=== PATIENT | female | born 2000 ===

== ENCOUNTER 2018-06-16 23:26 | Emergency (ER) | payer SELFPAY ==
[2018-06-17] MEDS ORDERED: TYLENOL PO ONE (00:55)
[2018-06-17 03:25] LABS: Bacteria,Urine 1+ /HPF (Negative); Bilirubin,Urine NEG (Negative); Blood,Urine NEG (Negative); Color,Urine Yellow (Yellow); Mucus,Urine FEW /HPF; Protein,Urine <15 mg/dL mg/dL (Negative); Urobilinogen,Urine < 2.0 mg/dL (<2.0)
[2018-06-17 03:26] LABS: HCG Qualitative,Urine Negative (Negative)
[2018-06-17] MEDS ORDERED: IBUPROFEN PO ONE (07:53)
--- NOTE | 2018-06-17 07:55 | Emergency Department Report ---
ED Fever HPI - General Chief Complaint: Fever Stated Complaint: BODYACHE/PAIN X 12HOURS Time Seen by Provider: 06/17/18 07:22 - History of Present Illness Initial Comments: This is a 18-year-old female presents to the ED complaining of fever that started yesterday, and had some generalized body aches that started this morning. Patient states sh Timing/Duration: yesterday Fever Severity/Quality: greater than 100.5 F Fever Therapy [employer]: none Associated Symptoms: cough (little."), muscle aches. denies: chest pain, confusion, nausea/vomiting, stiff neck, weakness ED Review of Systems ROS: Stated complaint: BODYACHE/PAIN X 12HOURS Other details as noted in HPI Comment: All other systems reviewed and negative ED Past Medical Hx - Past Medical History Previous Medical History?: No - Surgical History Past Surgical History?: No - Social History Smoking Status: Current Every Day Smoker Substance Use Type: None - Medications Home Medications: Home Medications Medication Instructions Recorded Confirmed Last Taken Type Amoxicillin/Potassium Clav 1 each PO BID #14 tablet 06/17/18 Unknown Rx [Augmentin 875-125 Tablet] Ibuprofen [Motrin 800 MG tab] 800 mg PO TID #30 tablet 06/17/18 Unknown Rx ED Physical Exam - General Limitations: No Limitations General appearance: alert, in no apparent distress - Head Head exam: Present: atraumatic, normocephalic - Eye Eye exam: Present: normal appearance - ENT ENT exam: Present: mucous membranes moist - Neck Neck exam: Present: normal inspection - Respiratory Respiratory exam: Present: normal lung sounds bilaterally. Absent: respiratory distress - Cardiovascular Cardiovascular Exam: Present: regular rate, normal rhythm. Absent: systolic murmur, diastolic murmur, rubs, gallop - GI/Abdominal GI/Abdominal exam: Present: soft, normal bowel sounds - Extremities Exam Extremities exam: Present: normal inspection - Back Exam Back exam: Present: normal inspection - Neurological Exam Neurological exam: Present: alert, oriented X3 - Psychiatric Psychiatric exam: Present: normal affect, normal mood - Skin Skin exam: Present: warm, dry, intact, normal color. Absent: rash ED Course Vital Signs 06/16/18 06/17/18 23:57 08:02 Temperature 101.7 F H 99.9 F H Pulse Rate 105 H 84 Respiratory 18 20 Rate Blood Pressure 116/64 Blood Pressure 123/63 [Right] O2 Sat by Pulse 98 100 Oximetry ED Medical Decision Making - Medical Decision Making 18-year-old female presents with a urinary tract infection Urinalysis positive for this finding I discussed findings with the patient. All of the labs within normal limits Patient is in no acute distress or respiratory distress. Vital signs are normalized, fever reduced Discussed with the patient to follow-up follow-up with primary physician/[facility] Critical care attestation.: If time is entered above; I have spent that time in minutes in the direct care of this critically ill patient, excluding procedure time. ED Disposition Clinical Impression: UTI (urinary tract infection) Disposition: TO HOME OR SELFCARE Is pt being admited?: No Does the pt Need Aspirin: No Condition: Stable Instructions: Urinary Tract Infection in Women (ED), Dysuria (ED) Additional Instructions: Make sure to follow up with the primary care physician as discussed. Take all your medications as you've been prescribed. If you have any worsening symptoms or develop new symptoms please return to ED immediately. Prescriptions: Amoxicillin/Potassium Clav [Augmentin 875-125 Tablet] 1 each PO BID #14 tablet Ibuprofen [Motrin 800 MG tab] 800 mg PO TID #30 tablet Referrals: KAIDEN GOMEZ MD [Primary Care Provider] - 3-5 Days BRYCE BRITTON MD [Referring] - 3-5 Days [facility] [Outside] - 3-5 Days Forms: Accompanied Note, Work/School Release Form(ED) Time of Disposition: 07:55
[2018-06-17 08:03] VITALS: BP 123/63
== END 2018-06-17 08:10 | disposition home or self-care (01) ==
LOC: ED 23:26
DX: N39.0 Urinary tract infection, site not specified (principal); F17.200 Nicotine dependence, unspecified, uncomplicated
CPT/HCPCS: 81001; 81025